=== PATIENT | male | born 1965 | race Caucasian/White ===

== ENCOUNTER 2017-04-22 10:05 | Emergency (ER) | payer MEDICARE, MEDICAID ==
[~2017-04-22] VITALS: Ht 182.9 cm; Wt 74.8 kg
[~2017-04-22 10:05] MED LIST: DIVA500T53 PO; GABA-339 PO
[2017-04-22 10:24] VITALS: BP 140/80
== END 2017-04-22 10:27 | disposition left against medical advice (07) ==
LOC: EDUNIT# 10:05 → ER 10:05
DX: F10.10 Alcohol abuse, uncomplicated (principal); Z53.21 Procedure and treatment not carried out due to patient leaving prior to being seen by health care provider